=== PATIENT | female | born 1940 | race American Indian/Alaskan Native ===

== ENCOUNTER 2018-01-25 14:11 | Outpatient (CLI) | payer MEDICARE ==
--- NOTE | 2018-01-25 15:32 | Mammography Report ---
BONE DENSITY STUDY: DEFINITIONS: BMD = Bone Mineral Density T-score = BMD related to mean peak bone mass of young adult (mean expressed in Standard Deviation) Z-score = Age matched BMD expressed in SD World Health Organization (WHO) Diagnostic Criteria Normal T-score > -1 SD Osteopenia T-score between -1 and -2.4 SD Osteoporosis T-score -2.5 SD or below FINDINGS: The weighted average BMD of lumbar spine L1-L4 is 0.890 with a T-score of -1.4. The weighted average BMD of hip is 0.631 with a T-score of -2.6. IMPRESSION: The patient's T-score is diagnostic for osteoporosis and high relative risk for fracture. NOTE: BMD is not the only risk factor for fracture; also consider factors such as the patient's age, risk of falling, previous osteoporotic fracture, family history of osteoporotic fractures, current smoker, and low body weight. Hardy's triangle is a region of interest in femur, predominantly of trabecular bone. It is not a true anatomic site, and ISCD does not recommend its use clinically.
== END 2018-01-25 14:12 | disposition home or self-care (01) ==
LOC: MAMMO 14:11
DX: M81.0 Age-related osteoporosis without current pathological fracture (principal); I10 Essential (primary) hypertension; E03.9 Hypothyroidism, unspecified; Z88.6 Allergy status to analgesic agent; Z87.891 Personal history of nicotine dependence
CPT/HCPCS: 77080

== ENCOUNTER 2020-12-09 13:37 | Outpatient (CLI) | payer MEDICARE ==
--- NOTE | 2020-12-10 07:45 | Mammography Report ---
DEXA BONE DENSITY SCAN INDICATION / CLINICAL INFORMATION: Z85.3. 80 years Female COMPARISON: DEXA scan from 01/25/2018 LUMBAR SPINE, L1-L4: - Bone mineral density (BMD) = 0.876 g/cm2. - T-score = -1.6 - Z-score = 0.5 Change (%) since most recent prior (if available): -1.6 LEFT HIP, TOTAL : - Bone mineral density (BMD) = 0.591 g/cm2. - T-score = -2.9 - Z-score = -1.3 Change (%) since most recent prior (if available): -6.3 FRAX was not reported because the T score is at or below -2.5. IMPRESSION: 1. WHO Classification: Osteoporosis. Fracture Risk: High. Note: 10-Year Fracture Risk (FRAX) not reported. This DEXA unit lacks FRAX functionality. BMD Reporting Guidelines (ISCD, 2015) BMD Reporting in Postmenopausal Women and in Men Age 50 and Older - T-scores are preferred. - The WHO densitometric classification is applicable. BMD Reporting in Females Prior to Menopause and in Males Younger Than Age 50 - Z-scores, not T-scores, are preferred. This is particularly important in children. - A Z-score of -2.0 or lower is defined as below the expected range for age, and a Z-score above -2.0 is within the expected range for age. - Osteoporosis cannot be diagnosed in men under age 50 on the basis of BMD alone. - The WHO diagnostic criteria may be applied to women in the menopausal transition. http://www.iscd.org/official-positions/7670-zrlh-kiwyaxrb-positions-adult/ Signer Name: Edgar Flores MD Signed: 12/10/2020 7:40 AM Workstation Name: [id number]
== END 2020-12-09 13:38 | disposition home or self-care (01) ==
LOC: MAMMO 13:37
PROVIDERS: ATTEND Internal Medicine Hematology & Oncology
DX: Z13.820 Encounter for screening for osteoporosis (principal); M81.0 Age-related osteoporosis without current pathological fracture; Z78.0 Asymptomatic menopausal state
CPT/HCPCS: 77080